=== PATIENT | male | born 1995 | race Caucasian/White ===

== ENCOUNTER 2020-04-28 11:24 | Emergency (ER) | payer OTHER ==
[~2020-04-28] VITALS: Ht 190.5 cm; Wt 93.0 kg
== END 2020-04-28 12:26 | disposition home or self-care (01) ==
LOC: ED 11:24
DX: T20.17XA Burn of first degree of neck, initial encounter (principal); T22.10XA Burn of first degree of shoulder and upper limb, except wrist and hand, unspecified site, initial encounter; X08.8XXA Exposure to other specified smoke, fire and flames, initial encounter; Y93.89 Activity, other specified; Y92.89 Other specified places as the place of occurrence of the external cause; Y99.0 Civilian activity done for income or pay

== ENCOUNTER 2021-03-11 16:12 | Emergency (ER) | payer OTHER ==
[~2021-03-11] VITALS: Ht 190.5 cm; Wt 102.1 kg
[2021-03-11] MEDS ORDERED: AMOXICILLIN500 M2 PO (18:15)
[2021-03-11] MEDS ORDERED: Motrin,Rufen800 MG PO (18:15)
== END 2021-03-11 18:46 | disposition home or self-care (01) ==
LOC: ED 16:12
DX: K08.89 Other specified disorders of teeth and supporting structures (principal); K03.81 Cracked tooth